=== PATIENT | male | born 1960 | race African-American/Black ===

== ENCOUNTER 2018-02-14 08:40 | Day surgery (SDC) | payer BC ==
[~2018-02-14] VITALS: Ht 185.4 cm; Wt 121.1 kg
[2018-02-14] VITALS (7 sets, daily range): BP systolic 120–136; BP diastolic 65–81
--- NOTE | 2018-02-14 06:59 | Anethesia Preoperative Eval ---
Anesthesia Pre-op PMH/ROS General Date of Evaluation: Feb 14, 2018 Time of Evaluation: 06:57 Anesthesiologist: karol ASA Score: ASA 3 Mallampati Score Class I : Soft palate, uvula, fauces, pillars visible Class II: Soft palate, uvula, fauces visible Class III: Soft palate, base of uvula visible Class IV: Only hard plate visible Mallampati Classification: Class II Surgeon: chris Diagnosis: colon screening Surgical Procedure: colooscopy Anesthesia History: none Family History: no anesthesia problems Allergies: Coded Allergies: No Known Allergies (Unverified , 02/13/18) Medications: see eMAR Patient NPO?: Yes Past Medical History Cardiovascular: Reports: HTN Pulmonary: Reports: JARED Endocrine: Reports: DM HEENT: Reports: other - tonsillectomy 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 Exam Physician Exam Constitutional: NAD Neurologic: CN 2-12 intact Cardiovascular: RRR Respiratory: CTA Gastrointestinal: S/NT/ND Airway Exam Mallampati Score: Class II MO: full Neck: flexible TMD: 2fb ROM: full Teeth: intact Anesthesia Pre-op A/P Risk Assessment & Plan Assessment: asa3 Plan: mac Status Change Before Surgery: No Pre-Antibiotics Drug: Dulce Chand MD Feb 14, 2018 06:59
[~2018-02-14 08:40] MED LIST: ALFUZOSIN HCL10 MG PO; AMLODIPINE BESY10 MG ORAL; Atropine Inj 1mg/10ml Syr IV PRN; DiphenhydrAMINE 50mg/ml Inj IVP PRN; GLIPIZIDE10 MG PO; HYDROCHLOROTHIA25 MG ORAL; LISINOPRIL40 MG ORAL; METFORMIN HCL500 M1 ORAL; Midazolam 2mg/2ml Inj IVP PRN; fentaNYL 100 mcg/2 mL IV PRN
[2018-02-14] MEDS ORDERED: Propofol 200mg/20ml IV ONE (10:00)
[2018-02-14] MEDS ORDERED: Lidocaine 1% MPF 10mg/ml 5ml ONE (10:00)
--- NOTE | 2018-02-14 10:21 | Pre-Procedure Note/Attestation ---
Pre-Procedure Note/Attestation Complete Prior to Procedure Planned Procedure: not applicable Procedure Narrative: colonoscopy Indications for Procedure Pre-Operative Diagnosis: screening Attestation I attest that I discussed the nature of the procedure; its benefits; risks and complications; and alternatives (and the risks and benefits of such alternatives ), prior to the procedure, with the patient (or the patient's legal front office representative). I attest that, if there was a reasonable possibility of needing a blood transfusion, the patient (or the patient's legal front office representative) was given the [facility] standardized written summary, pursuant to the [place] Blood Safety Act ([place] Health and Safety Code # 1645, as amended). I attest that I re-evaluated the patient just prior to the surgery and that there has been no change in the patient's H&P, except as documented below: Tru Zelaya MD Feb 14, 2018 10:21
--- NOTE | 2018-02-14 10:22 | Short Stay Surgery H&P ---
History of Present Illness History of Present Illness Chief Complaint screening colon see recent office note HPI Stef Richardson is a 57 year old male who was admitted on for Screening Colonoscopy / Abdominal Pain Patient History Allergies: Coded Allergies: No Known Allergies (Unverified , 02/13/18) Medication History Scheduled Alfuzosin* (Uroxatrol*), 10 MG PO DAILY, (Reported) Amlodipine Besylate* (Amlodipine Besylate*), 10 MG ORAL DAILY, (Reported) Glipizide (Glipizide), 10 MG PO DAILY, (Reported) Hydrochlorothiazide* (Hydrochlorothiazide*), 25 MG ORAL DAILY, (Reported) Lisinopril* (Lisinopril*), 40 MG ORAL DAILY, (Reported) Metformin Hcl* (Metformin Hcl*), 500 MG ORAL TWICE A DAY, (Reported) Physical Exam Vital Signs Last Vital Signs Date Time Temp Pulse Resp B/P (MAP) Pulse Ox O2 Delivery O2 Flow Rate FiO2 02/14/18 09:36 98.1 71 20 125/73 100 Room Air 98.1 Plan Attestation Are the patient's medical conditions optimized for surgery? Tru Zelaya MD Feb 14, 2018 10:22
--- NOTE | 2018-02-14 10:24 | Short Stay Surgery H&P ---
History of Present Illness History of Present Illness Chief Complaint screening colon HPI Stef Richardson is a 57 year old male who was admitted on for Screening Colonoscopy / Abdominal Pain Patient History Allergies: Coded Allergies: No Known Allergies (Unverified , 02/13/18) PAST MEDICAL HISTORY: (1) HIV disease (2) DM (3) HTN (hypertension) Medication History Scheduled Alfuzosin* (Uroxatrol*), 10 MG PO DAILY, (Reported) Amlodipine Besylate* (Amlodipine Besylate*), 10 MG ORAL DAILY, (Reported) Glipizide (Glipizide), 10 MG PO DAILY, (Reported) Hydrochlorothiazide* (Hydrochlorothiazide*), 25 MG ORAL DAILY, (Reported) Lisinopril* (Lisinopril*), 40 MG ORAL DAILY, (Reported) Metformin Hcl* (Metformin Hcl*), 500 MG ORAL TWICE A DAY, (Reported) Review of Systems Cardiovascular: Reports: no symptoms Respiratory: Reports: no symptoms Skeletal: Reports: no symptoms Gastrointestinal: Reports: no symptoms Genitourinary: Reports: no symptoms Neurologic: Reports: no symptoms Endocrine: Reports: no symptoms Hematologic: Reports: no symptoms Physical Exam Vital Signs Last Vital Signs Date Time Temp Pulse Resp B/P (MAP) Pulse Ox O2 Delivery O2 Flow Rate FiO2 02/14/18 09:36 98.1 71 20 125/73 100 Room Air 98.1 Skin: normal HENT: normal Heart: normal Lungs: normal Abdomen: normal Extremities: normal Plan Plan of Care colonoscopy Attestation Are the patient's medical conditions optimized for surgery? Attestation Response: yes Tru Zelaya MD Feb 14, 2018 10:24
--- NOTE | 2018-02-14 10:50 | Endoscopy Procedure Note ---
Endoscopy Procedure Note General Indication for Procedure: screening Procedures Performed: colonoscopy Operative Findings/Diagnosis: 2 polyps Specimen: yes Pt Tolerated Procedure Well: Yes Estimated Blood Loss: none Anesthesia Anesthesiologist: al Anesthesia: MAC Inserted Devices Implant(s) used?: No Quality Quality of Bowel Preparation: Good Did scope reach the cecum?: Yes Was there any complications?: No GI Core Measures 50 yrs or older w/o bx or poly: No 10yrs. F/U not recommended: Yes If not recommended, why?: Above average risk 10 yrs. F/U needed: Yes 18 years or older w/prev. colo: No Tru Zelaya MD Feb 14, 2018 10:50
--- NOTE | 2018-02-14 11:15 | Procedure Note ---
DATE OF PROCEDURE: 02/14/2018 SURGEON: Tru Zelaya M.D. ANESTHESIOLOGIST: Dr. Morocho. PROCEDURE: Colonoscopy with biopsy. ANESTHESIA: Per Dr. Morocho. INSTRUMENT: Olympus adult flexible colonoscope. INDICATION: Screening colonoscopy evaluation. The procedure, risks, benefits, and possible consequences, including hemorrhage, aspiration, perforation and infection, and alternative treatments, were explained to the patient/legal guardian by Dr. Tru Zelaya and the patient/legal guardian understood and accepted these risks. DESCRIPTION OF PROCEDURE: After informed consent was obtained and the patient was adequately sedated, first rectal exam was performed which was positive for internal hemorrhoids. Then, the scope was advanced from the rectum into the cecum documented by appendix orifice, ileocecal valve, and right upper quadrant palpation. Quality of prep was good except for some part of the colon, I would say about 10% of the colonic mucosa was not fully examined given this prep. The patient had 2 diminutive polyps, one in the rectum and one in the descending colon, both were removed with the cold biopsy forceps technique. Retroflexion of rectum showed evidence of medium-sized nonbleeding internal hemorrhoids. SUMMARY OF FINDINGS: 1. Two colonic polyps removed, see above for details. 2. Internal hemorrhoids. RECOMMENDATIONS: 1. Follow up biopsy results. 2. We recommend repeat colonoscopy in 5 years. Tru Zelaya M.D. DR: Jann JOB#: [id number] CC:
--- NOTE | 2018-02-14 12:49 | Immediate Post-Op Evaluation ---
Immediate Post-Op Evalulation Immediate Post-Op Evalulation Procedure: colonoscopy w/bx Date of Evaluation: Feb 14, 2018 Time of Evaluation: 11:02 IV Fluids: 350ml 0.9ns Blood Products: none Estimated Blood Loss: negligible Blood Pressure Systolic: 121 Blood Pressure Diastolic: 75 Pulse Rate: 62 Respiratory Rate: 18 O2 Sat by Pulse Oximetry: 100 Temperature (Fahrenheit): 98.2 Pain Score (1-10): 0 Nausea: No Vomiting: No Complications none Patient Status: awake, reacts, patent Hydration Status: adequate Drug: Dulce Chand MD Feb 14, 2018 12:49
--- NOTE | 2018-02-14 12:50 | 48 Hour Post Anesthesia Eval ---
Post Anesthesia Evaluation Procedure: colonoscopy w/bx Date of Evaluation: Feb 14, 2018 Time of Evaluation: 11:04 Blood Pressure Systolic: 122 0: 65 Pulse Rate: 65 Respiratory Rate: 18 Temperature (Fahrenheit): 98.2 O2 Sat by Pulse Oximetry: 100 Airway: patent Nausea: No Vomiting: No Pain Intensity: 0 Hydration Status: adequate Cardiopulmonary Status: stable Mental Status/LOC: patient returned to baseline Post-Anesthesia Complications: none Follow-up care needed: N/A Dulce Mckeon MD Feb 14, 2018 12:50
--- NOTE | 2018-02-15 13:25 | Cardiology Report ---
APPROVED REPORT EKG Measurement Heart [id number] VT [id number] Normal sinus rhythm Nonspecific T wave abnormality Abnormal ECG
== END 2018-02-14 12:15 | disposition home or self-care (01) ==
LOC: GAS 08:40
DX: Z12.11 Encounter for screening for malignant neoplasm of colon (principal); D12.4 Benign neoplasm of descending colon; K62.1 Rectal polyp; E11.9 Type 2 diabetes mellitus without complications; I10 Essential (primary) hypertension; G47.33 Obstructive sleep apnea (adult) (pediatric); E66.9 Obesity, unspecified; Z79.84 Long term (current) use of oral hypoglycemic drugs
CPT/HCPCS: 45380; 82962; 93005; J2704; 94003; 94150